=== PATIENT | male | born 1985 | race Two or more races ===

== ENCOUNTER 2021-02-06 06:26 | Emergency (ER) | payer BC ==
[~2021-02-06] VITALS: Ht 175.3 cm; Wt 93.0 kg
--- NOTE | 2021-02-06 06:30 | NUR ---
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 PT AAOX4 BREATHING EVENLY AND UNLABORED. PT STATES "I HAVE AN IRRITABLE BOWEL, THE PAIN JUST STARTS". PT ATTACHED TO MONITOR AND POX. MD AT BEDSIDE. 20G LEFT FOREARM INITATED. BLOOD SENT TO LAB. PT GIVEN BLANKET AND CALL LIGHT WITHIN REACH.
[2021-02-06] MEDS ORDERED: MORPHINE SULFATE INJ 4 MG/ML DISP.SYRIN ONE (06:33)
[2021-02-06] MEDS ORDERED: KETOROLAC TROMETHAMINE 15 MG/ML VIAL ONE (06:33)
[2021-02-06] MEDS ORDERED: ONDANSETRON HCL/PF 4 MG/2 ML VIAL ONE (06:33)
[2021-02-06] MEDS: IV NS 0.9% 1,000 ML BAG IV ONE (06:40)
[2021-02-06] MEDS: KETOROLAC TROMETHAMINE INJ 30 MG/ML VIAL IV ONE (06:40)
[2021-02-06] MEDS: ONDANSETRON HCL/PF 4 MG/2 ML VIAL IVP ONE (06:40)
[2021-02-06] MEDS: MORPHINE SULFATE INJ 2 MG/ML DISP.SYRIN IV ONE (06:40)
[2021-02-06] MEDS ORDERED: HYDROMORPHONE 1 MG/1 ML DISP.SYRIN ONE ×2 (06:52→08:00)
[2021-02-06] MEDS: HYDROMORPHONE 1 MG/1 ML DISP.SYRIN IV ONE ×2 (07:00→08:05)
--- NOTE | 2021-02-06 07:05 | NUR ---
GAVE REPORT TO GAVINO JUAN FOR JUANA
[2021-02-06 07:22] LABS: BASOPHILS % (AUTO) 0.5 % (0.0-2.0); EOSINOPHILS % (AUTO) 2.1 % (0.0-6.0); HEMATOCRIT 46 % (39-51); HEMOGLOBIN 15.7 g/dL (13.5-17.5); LYMPHOCYTES # (AUTO) 2.9 K/uL (0.8-4.8); MEAN CORPUSCULAR HGB CONC 34 g/dl (31.0-36.0); MEAN CORPUSCULAR VOLUME 91 fL (80-96); MONOCYTES # (AUTO) 0.7 K/uL (0.1-1.30); MONOCYTES % (AUTO) 7.8 % (2.0-12.0); NEUTROPHILS # (AUTO) 5.2 K/uL (1.8-8.9); NEUTROPHILS % (AUTO) 57.6 % (43.0-81.0); PLATELET COUNT (AUTO) 256 K/uL (150-450); RED BLOOD CELL COUNT(AUTO) 5.04 MIL/uL (4.5-6.0); WHITE BLOOD COUNT (AUTO) 9.1 K/uL (4.3-11.0)
--- NOTE | 2021-02-06 07:30 | NUR ---
PATIENT UNABLE TO PROVIDE URINE AT THIS TIME
--- NOTE | 2021-02-06 08:05 | NUR ---
PATIENT WOKE UP, RESTLESS IN BED, C/O SEVERE ABDOMINAL PAIN. DR. HÉCTOR SANONE AWARE AND RECEIVED ORDER TO GIVE DILAUDID 1MG.
[2021-02-06 08:14] LABS: POTASSIUM 3.8 mmol/L (3.5-5.1)
[2021-02-06 08:20] LABS: ALBUMIN 4.4 g/dL (3.4-5.0); BILIRUBIN,DIRECT 0.1 mg/dL (0.0-0.2); BILIRUBIN,TOTAL 0.6 mg/dL (0.2-1.0)
--- NOTE | 2021-02-06 09:11 | NUR ---
PATIENT STS HE FEELS BETTER. VSS.
--- NOTE | 2021-02-06 10:09 | NUR ---
PATIENT'S A/OX4, BREATHING EVEN AND UNLABORED, NO SOB NOTED. DENIES ANY PAIN AT THIS TIME. PATIENT'S VSS. AMBULATORY WITH STEADY GAIT. WILL PICK HIM UP. IV removed. Catheter intact and site benign. Pressure and 4x4 applied to site. No bleeding noted.Patient discharged to home in stable condition. Written and verbal after care instructions given. Patient verbalizes understanding of instruction.
[2021-02-06 10:10] VITALS: BP 114/72
== END 2021-02-06 10:10 | disposition home or self-care (01) ==
LOC: ER 06:32
DX: R10.31 Right lower quadrant pain (principal); R11.2 Nausea with vomiting, unspecified; Z90.49 Acquired absence of other specified parts of digestive tract
CPT/HCPCS: 36415; 80048; 80076; 83690; 85025; 96361; 96374; 96375; 96376; 99284; J1170 ×2; J1885; J2270; J2405; J7030